=== PATIENT | female | born 1970 | race Caucasian/White ===

== ENCOUNTER 2016-05-29 13:00 | Day surgery (SDC) | payer OTHER ==
[~2016-05-29] VITALS: Ht 157.5 cm; Wt 68.0 kg
[~2016-05-29 13:00] MED LIST: 0.9% Sodium Chloride 1,000 ML IV PRN; AMT25T PO; FLUT9.9S NS; HYDR-3740 PO; LORA10CA PO; estrogen patch TD; fentaNYL-PF 50 mCg/mL 2 mL Inj IVPUSH PRN
[2016-05-29] MEDS ORDERED: MethylprednisoLONE Depot 80 mg/mL Inj ONE (13:01)
[2016-05-29 14:04] VITALS: BP 112/73; PULSE 68; RESP 14; O2SAT 98
[2016-05-29] MEDS ORDERED: Gadopentetate Dimeglumine 5 mL Inj IVPUSH ONE (14:20)
[2016-05-29 14:36] VITALS: BP 100/68; PULSE 67; RESP 14; O2SAT 97
--- NOTE | 2016-05-29 16:49 | PCM.PROC ---
Procedure Note Date of Service: May 29, 2016 Pre Procedure Diagnosis: PROCEDURE: Cervical interlaminar epidural steroid injection. RIGHT paramedian C6-C7. Iodine free contrast. IV sedation PRE-PROCEDURE DIAGNOSIS: Cervical radiculopathy POST-PROCEDURE DIAGNOSIS: same INDICATION: 45-year-old female with RIGHT arm pain consistent with cervical radiculopathy PERFORMED BY: Collins Hickey MD DESCRIPTION OF PROCEDURE: Patient was met in the holding area. Consent was signed, site was confirmed and all questions were answered. Patient was taken to the procedure suite and placed prone on the procedure table with neck in a flexed position. The appropriate time out in the OR was performed confirming the patient's name, date of , planned procedure, and presence of the appropriate instrumentation. The proper interspace was identified using fluoroscopic guidance. Local anesthesia with 1% lidocaine was used to anesthetize the skin and subcutaneous tissues. A 20-gauge Touhy epidural needle was advanced under tunnel view vision using direct fluoroscopic guidance towards the inferior lamina using a RIGHT paramedian approach. A contralateral oblique view was used to gauge depth after the needle was walked off the lamina. After loss of resistance was obtained using a loss of resistance syringe, radiopaque contrast was injected under live fluoroscopic view which confirmed epidural placement as well as the absence of intravascular uptake. 80 mg Depo-Medrol was injected without difficulty. ANESTHESIA: Local. 1 mg Versed. 100 mcg fentanyl EBL: None. No Blood Products Used COMPLICATIONS: None SPECIMENS: None POST-PROCEDURE DISPOSITION: Patient was returned to the holding area in stable condition. They were discharged home when all discharge criteria were met. Evaluation/Physical Exam before discharge revealed: No Neurologic Change DISCHARGE MEDICATIONS: None FOLLOW UP: Followup with neurosurgery in 2 weeks Fluro time:See Radiology Record Collins Hickey MD * Pain Management * Anesthesiology (Dictated using voice-recognition software) Collins Hickey MD May 29, 2016 16:49
== END 2016-05-29 23:59 | disposition home or self-care (01) ==
LOC: END 13:00
PROVIDERS: ATTEND Anesthesiology Pain Medicine
DX: M54.12 Radiculopathy, cervical region (principal)
CPT/HCPCS: 62321; A9579; J1040; J2250; J3010; J7030